=== PATIENT | male | born 2000 | race African-American/Black ===

== ENCOUNTER 2019-07-08 08:50 | Emergency (ER) | payer SELFPAY ==
--- NOTE | 2019-07-08 09:26 | ED ---
Shortness of Breath - HPI Summary HPI Summary: 18 year old M arriving via ambulance with 2 friends complains of shortness of breath, shakiness, right sided chest tightness, light headedness since waking up 0730 today 07/08/2019. Patient reports that he is not anxious. Patient states he did not have these sx yesterday 07/07/2019 PM. He has never had these symptoms before. Patient has not eaten today. Patient admits to consuming edibles last night. No smoking. No vaping. No e-cigarettes. Symptoms rated 0/10 in severity. Symptoms aggravated by nothing. Symptoms alleviated by nothing. No cardiac hx. No hx asthma. FHx MD mother. - History of Current Complaint Chief Complaint: EDShortnessOfBreath Time Seen by Provider: 07/08/19 09:08 Hx Obtained From: Patient Onset/Duration: Lasting Hours - 0730 today 07/08/2019, Still Present Timing: Constant Current Severity: None Aggravating Factors: Nothing Alleviating Factors: Nothing - Allergy/Home Medications Allergies/Adverse Reactions: Allergies Allergy/AdvReac Type Severity Reaction Status Date / Time No Known Allergies Allergy Verified 07/08/19 09:17 Home Medications: Home Medications NK [No Home Medications Reported] 07/08/19 [History Confirmed 07/08/19] PMH/Surg Hx/FS Hx/Imm Hx Cardiovascular History: Denies: Hx Hypertension Respiratory History: Denies: Hx Asthma - Surgical History Surgical History: None Infectious Disease History: No Infectious Disease History: Denies: Traveled Outside the [place] in Last 30 Days - Family History Known Family History: Positive: Cardiac Disease - MD mother - Social History Alcohol Use: weekends Hx Substance Use: Yes Substance Use Type: Reports: Marijuana Hx Tobacco Use: No Smoking Status (MU): Never Smoked Tobacco Review of Systems Positive: Other - shakiness Positive: Other - chest tightness right side Positive: Shortness Of Breath Neurological: Other - light headedness Negative: Anxious All Other Systems Reviewed And Are Negative: Yes Physical Exam - Summary Physical Exam Summary: Constitutional: Well-developed, Well-nourished, Alert. (-) Distressed Skin: Warm, Dry HENT: Normocephalic; Atraumatic Eyes: Conjunctiva normal Neck: Musculoskeletal ROM normal neck. (-) JVD, (-) Stridor, (-) Nuchal rigidity Cardio: Rhythm regular, rate normal, Heart sounds normal; Intact distal pulses; Radial pulses are 2+ and symmetric. (-) Murmur Pulmonary/Chest wall: Effort normal. (-) Respiratory distress, (-) Wheezes, (-) Rales Abd: Soft, (-) tenderness, (-) Distension, (-) Guarding, (-) Rebound Musculoskeletal: (-) Edema Lymph: (-) Cervical adenopathy Neuro: Alert, Oriented x3 Psych: Mood and affect Normal Triage Information Reviewed: Yes Vital Signs On Initial Exam: Initial Vitals Temp Pulse Resp BP Pulse Ox 97.4 F 92 20 139/85 100 07/08/19 09:12 07/08/19 09:12 07/08/19 09:12 07/08/19 09:12 07/08/19 09:12 Vital Signs Reviewed: Yes Procedures - Sedation Patient Received Moderate/Deep Sedation with Procedure: No Diagnostics - Vital Signs Vital Signs Temp Pulse Resp BP Pulse Ox 07/08/19 09:12 97.4 F 92 20 139/85 100 - Laboratory Result Diagrams: 07/08/19 09:38 07/08/19 09:38 Lab Statement: Any lab studies that have been ordered have been reviewed, and results considered in the medical decision making process. - Radiology CXR Radiology Interpretation Completed By: Radiologist Summary of Radiographic Findings: No acute cardiopulmonary process by radiograph. ED physician has reviewed this imaging report. - EKG 1030 Cardiac Rate: NL - 74 BPM EKG Rhythm: Sinus Rhythm Summary of EKG Findings: An EKG at 1030 reveals normal sinus rhythm 74 BPM and early repol. No STEMI. No acute changes. ED physician has reviewed and interpreted this EKG. Course/Dx - Course Course Of Treatment: 18 y/o male p/w chest tightness and anxiety this am. - VSS NAD. PE well appearing, EWOB on RA. - labs wnl, CXR does not show PNA, PTX. EKG non ischemic, do not suspect ACS. - Patient was observed, given IVF and tolerating PO. Feels much better. - Diagnoses Provider Diagnoses: Shortness of breath Discharge ED - Sign-Out/Discharge Documenting (check all that apply): Patient Departure - Discharge Plan Condition: Stable Disposition: HOME Patient Education Materials: Shortness of Breath (ED) Forms: *School Release Referrals: [facility] [Outside] Additional Instructions: You were seen in the emergency department for shortness breath. Your EKG and chest x-ray did not show any abnormalities. If any studies were not completed at the time of discharge you will be called with the relevant results. Please follow up with your primary care doctor in next 2-3 days and return to emergency department for chest pain, trouble breathing, worsening or concerning symptoms. It was a pleasure taking care of you today. - Billing Disposition and Condition Condition: STABLE Disposition: Home - Attestation Statements Document Initiated by Patrizia: Yes Documenting Scribe: Jazlyn Keating Provider For Whom Patrizia is Documenting (Include Credential): Karson Ricks MD Scribe Attestation: IJazlyn, scribed for Karson Ricks MD on 07/09/19 at 0936. Scribe Documentation Reviewed: Yes Provider Attestation: The documentation as recorded by the Jazlyn brian accurately reflects the service I personally performed and the decisions made by , Karson Ricks MD Status of Scribe Document: Viewed
[2019-07-08 09:48] LABS: ABS Eosinophils 0.1 10^3/ul (0-0.6); ABS Lymphocytes 1.8 10^3/ul (1.0-4.8); ABS Monocytes 0.6 10^3/ul (0-0.8); Hematocrit 46 % (42-52); Hemoglobin 15.5 g/dL (14.0-18.0); Lymphocyte % 27.7 %; Mean Corpuscular HGB Conc 34 g/dL (31-36); Mean Corpuscular Hemoglobin 29 pg (27-31); Mean Corpuscular Volume 86 fL (80-94); Mean Platelet Volume 6.8 fL (7.4-10.4); Platelet Count 254 10^3/uL (150-450); Red Blood Count 5.32 10^6 /uL (4.18-5.48); Red Cell Distribution Width 14 % (10-15); White Blood Count 6.5 10^3/uL (3.5-10.8)
[2019-07-08] MEDS ORDERED: NS 0.9% 1000 ML** 1,000 ML IV ONE (10:36)
[2019-07-08 10:44] LABS: Calcium 8.8 mg/dL (8.6-10.3); Potassium 3.4 mmol/L (3.5-5.0); Total Bilirubin 0.3 mg/dL (0.2-1.0)
[2019-07-08 10:50] LABS: Albumin/Globulin Ratio 1.6 (1-3); BUN/Creatinine Ratio 8.5 (8-20); EGFR African American 107.8 (>60); EGFR Non-African American 89.1 (>60); Globulin 2.5 g/dL (2-4); Total Protein 6.5 g/dL (6.4-8.9)
[2019-07-08 13:30] VITALS: BP 116/66
== END 2019-07-08 11:40 | disposition home or self-care (01) ==
LOC: ED 08:50
DX: R06.02 Shortness of breath (principal)
CPT/HCPCS: 36415; 71046; 80053; 85025; 93005; 96360; 99283